=== PATIENT | female | born 1990 | race Caucasian/White ===

== ENCOUNTER → 2021-07-16 | Outpatient (CLI) | payer OTHER ==
--- NOTE | 2021-07-16 17:26 | RAD ---
US FNA BIOPSY 1ST LESION 07/16/2021 1:20 PM HISTORY: Thyroid nodule. History of left thyroidectomy. FINDINGS: Written informed consent was obtained from the patient. Limited ultrasound scanning was pe rformed for localization of the right thyroid nodule. Skin was marked with ultrasound and then steri kyrie prepped and draped. Local anesthesia with 1% lidocaine. Using ultrasound guidance, 4 passes w ere made with 25 gauge needles into the thyroid nodule for fine needle aspiration biopsies. There we re no immediate complications. IMPRESSION: 1. Status post ultrasound guided fine needle aspiration biopsy of right thyroid nodule. Electronically signed by: Renu Tomas MD (07/16/2021 5:24 PM) [id number]
== END | disposition home or self-care (01) ==
LOC: US 13:21
PROVIDERS: ATTEND Physician Assistant
DX: E04.1 Nontoxic single thyroid nodule (principal)
CPT/HCPCS: 10005; C1819